=== PATIENT | female | born 1960 | race Caucasian/White ===

== ENCOUNTER 2017-01-14 07:36 | Day surgery (SDC) | payer OTHER ==
[2017-01-13 17:43] VITALS: Ht 152.4 cm; Wt 120.0 kg
[~2017-01-14] VITALS: Ht 152.4 cm; Wt 120.0 kg
[2017-01-14] VITALS (10 sets, daily range): BP systolic 123–184; BP diastolic 64–96; PULSE 62–88; RESP 16–18
[~2017-01-14 07:36] MED LIST: BUPIVACAINE 0.25% (MPF) 30 ML INJ INJ ONE
[2017-01-14] MEDS ORDERED: CEFAZOLIN 2 GM/50 ML (PMX) 50 ML IVPB ONE (08:30)
[2017-01-14] MEDS ORDERED: SOD CHLORIDE 0.9% 1,000 ML IV SCH (08:30)
[2017-01-14] MEDS ORDERED: ALEN70TA30 PO (08:37)
[2017-01-14] MEDS ORDERED: HYD25 PO ×2 (08:37→08:40)
[2017-01-14] MEDS ORDERED: AMLO5TAB4 PO (08:37)
[2017-01-14] MEDS ORDERED: CIPR500T4 PO (08:38)
[2017-01-14] MEDS ORDERED: GUAI120011 PO (08:42)
[2017-01-14] MEDS ORDERED: AMLO-352 PO (08:42)
[2017-01-14] MEDS ORDERED: FLUT200B INHALATION (08:42)
[2017-01-14] MEDS ORDERED: BUPIVACAINE 0.25% (MPF) 30 ML INJ ONE (11:12)
[2017-01-14] MEDS ORDERED: MIDAZOLAM 1 MG/ML 2 ML INJ ONE (11:37)
[2017-01-14] MEDS ORDERED: FENTAnyl 50 MCG/ML VIAL ONE (11:37)
[2017-01-14] MEDS ORDERED: PROPOFOL 20 ML ONE (12:14)
[2017-01-14] MEDS ORDERED: LIDOCAINE 2% (SDV) 5 ML INJ ONE (12:14)
[2017-01-14] MEDS ORDERED: CEFAZOLIN 1 GM INJ ONE (12:14)
[2017-01-14] MEDS ORDERED: DEXAMETHASONE 4 MG/ML 1 ML INJ ONE (12:15)
[2017-01-14] MEDS ORDERED: METOCLOPRAMIDE 10 MG INJ ONE (12:15)
[2017-01-14] MEDS ORDERED: ONDANSETRON 4 MG INJ ONE (12:15)
[2017-01-14] MEDS ORDERED: ONDANSETRON 4 MG INJ IV PRN (12:30)
[2017-01-14] MEDS ORDERED: DIPHENHYDRAMINE 50 MG INJ IV PRN (12:30)
[2017-01-14] MEDS ORDERED: FENTAnyl 50 MCG/ML VIAL IV PRN (12:30)
[2017-01-14] MEDS ORDERED: HYDROCODONE/APAP (5/325) TAB PO ONE (12:30)
[2017-01-14] MEDS ORDERED: MEPERIDINE 25 MG INJ IV PRN (12:30)
--- NOTE | 2017-01-14 13:11 | OPR ---
DATE OF OPERATION: 01/14/2017 INDICATION: This is a 56-year-old female with a left posterior scalp mass. She requests surgical e xcision. Risks, alternatives, benefits, and personnel were discussed with the patient. In particul ar, scar alopecia was discussed with the patient. Patient expresses understanding and consents to t he operation. PREOPERATIVE DIAGNOSIS: Left posterior scalp mass. POSTOPERATIVE DIAGNOSIS: Left posterior scalp mass. OPERATION PERFORMED: 1. Excision of left posterior scalp mass with a 6 cm size incision and 3 cm size mass. 2. Localized adjacent tissue transfer with the use of skin flaps with 12 square cm defect, CPT [place] e 83[address]. 3. Therapeutic injection subcutaneously with Marcaine, CPT code 20923. SURGEON: MD Noemi SPECIMEN: Left posterior scalp mass. COMPLICATIONS: None. ANESTHESIA: General. PROCEDURE: The patient was taken to the OR and prepped and draped in the usual sterile fashion. Foote rgical timeout was performed. IV antibiotics were given. Incision is made with a 15 blade over the mass. Dissection cautery was carried down to the mass and circumferentially excised. There was go od hemostasis. Due to tissue defect, localized adjacent tissue transfer with the use of skin flaps was performed, closure with skin jessica. Therapeutic local anesthesia was injected. Dry dressings were applied. Dictated By: PRASANTH BHATT/JACLYN Conf#: [id number] DID#: [id number]
== END 2017-01-14 14:17 | disposition home or self-care (01) ==
LOC: SDS 07:36
PROVIDERS: ATTEND Surgery
DX: L72.11 Pilar cyst (principal); I10 Essential (primary) hypertension; E66.9 Obesity, unspecified; Z68.31 Body mass index [BMI] 31.0-31.9, adult
CPT/HCPCS: 14020; 88307; J0690; J1100; J2250; J2405; J2765; J3010